=== PATIENT | male | born 1960 | race Caucasian/White ===

== ENCOUNTER 2021-02-08 08:43 | Emergency (ER) | payer BC, MEDICAID ==
[~2021-02-08] VITALS: Ht 167.6 cm; Wt 68.0 kg
[2021-02-08 08:55] VITALS: BP 138/76
--- NOTE | 2021-02-08 09:01 | NUR ---
Note marckroro in EDM - 02/08/21 at 0923 by [facility] 60 Y/O MALE C/O NAUSEA, ABDOMINAL PAIN 06/18 DESCRIBES DULL AND BEGAN VOMITING BLOOD AND SAW A SMALL CLOT [id number]. PT STATES HE TOOK MYLANTA AND EMETROL WITH SOME RELIEF. PT DENIES FEVER/CHILLS. PMH: LOWER GI BLEED, 4-10 BEERS A WEEK [id number]. NKA
--- NOTE | 2021-02-08 09:02 | NUR ---
PT TAKEN TO BED 11
--- NOTE | 2021-02-08 09:03 | NUR ---
60 Y/O MALE C/O NAUSEA, ABDOMINAL PAIN 06/18 DESCRIBES DULL AND BEGAN VOMITING BLOOD AND SAW A SMALL CLOT [id number]. PT STATES HE TOOK MYLANTA AND EMETROL WITH SOME RELIEF. PT DENIES FEVER/CHILLS. PMH: LOWER GI BLEED, 4-10 BEERS A WEEK [id number]. [place]
--- NOTE | 2021-02-08 09:04 | NUR ---
Dr. Nelson at pt bedside for further evaluation.
--- NOTE | 2021-02-08 09:04 | NUR ---
Dr. Nelson examining patient.
--- NOTE | 2021-02-08 09:21 | NUR ---
crime lab technician at pt bedside.
[2021-02-08 09:45] LABS: BASOPHILS % (AUTO) 0.3 % (0.0-2.0); EOSINOPHILS % (AUTO) 0.5 % (0.0-4.0); HEMATOCRIT 44.9 % (36-52); HEMOGLOBIN 15.6 g/dL (12.0-18.0); LYMPHOCYTES # (AUTO) 0.8 K/uL (2.0-11.5); LYMPHOCYTES % (AUTO) 20.7 % (20.5-51.1); MEAN CORPUSCULAR HEMOGLOBIN 33 pg (27-31); MEAN CORPUSCULAR HGB CONC 35 g/dL (33-37); MEAN CORPUSCULAR VOLUME 93.6 fL (80-94); MONOCYTES # (AUTO) 0.4 K/uL (0.8-1.0); MONOCYTES % (AUTO) 9.8 % (1.7-9.3); NEUTROPHILS # (AUTO) 2.7 K/uL (1.8-7.7); NEUTROPHILS % (AUTO) 68.7 % (42.2-75.2); PLATELET COUNT (AUTO) 156 K/uL (140-450); RED BLOOD CELL COUNT(AUTO) 4.79 MIL/uL (4.20-6.10); RED CELL DISTRIBUTION WIDTH 13.8 % (11.6-13.7)
[2021-02-08 09:48] LABS: PROTHROMBIN TIME 11.8 secs (10.8-13.4)
[2021-02-08 09:51] LABS: ANION GAP 13.5 (8-16); CARBON DIOXIDE 25.4 mmol/L (21-32); CREATININE 0.6 mg/dL (0.6-1.3); POTASSIUM 3.9 mmol/L (3.5-5.1); TOTAL BILIRUBIN 0.9 mg/dL (0.0-1.0)
[2021-02-08] MEDS ORDERED: MAG-27 PO (10:45)
[2021-02-08 11:07] VITALS: BP 138/76
--- NOTE | 2021-02-08 11:09 | NUR ---
Patient discharged with v/s stable. Written and verbal after care instructions given and explained. Patient alert, oriented and verbalized understanding of instructions. Ambulatory with steady gait. All questions addressed prior to discharge. ID band removed. Patient advised to follow up with PMD. Rx of MYLANTA 20Ml TID PRN REFLUX given. Patient educated on indication of medication including possible reaction and side effects. Opportunity to ask questions provided and answered.
== END 2021-02-08 11:09 | disposition home or self-care (01) ==
LOC: MED 08:43
DX: R10.10 Upper abdominal pain, unspecified (principal); R11.0 Nausea
CPT/HCPCS: 36415; 80053; 83690; 85025; 85610; 85730; 99283

== ENCOUNTER 2021-04-20 06:43 | Emergency (ER) | payer MEDICAID ==
[~2021-04-20] VITALS: Ht 152.4 cm; Wt 62.1 kg
[~2021-04-20 06:43] MED LIST: MAG-27 PO
[2021-04-20 06:46] VITALS: BP 139/83
--- NOTE | 2021-04-20 06:46 | NUR ---
to bed ambulatory
[2021-04-20] MEDS ORDERED: KETOROLAC 60 MG/2 ML VIAL IM ONE (07:00)
--- NOTE | 2021-04-20 07:15 | NUR ---
RECEIVED AWAKE AND ALERT IN BED 11, REPORTS THAT HE TOOK A FALL AT HOME ON STAIRS, STRUCK THE RIGHT SIDE OF HEAD WITH NO LOC, RIGHT SHOULDER WITH DECREASED ROM NOW, AND STRUCK RIGHT CHEST WALL. CO DIFFICULTY RAISING RIGHT ARM MORE THAT 45 DEGREESS, CO RT RIB PAIN WITH DEEP INSPIRATION. POSITIONED FOR COMFORT, BED LOW AND LOCKED. RESTING QUEITLY AWAITING XRAYS AND MEDICATION. DENIES MEDICAL HISTORY, MEDS (OTHER THAN ALEVE) AND DENIES ALLERGIES.
--- NOTE | 2021-04-20 07:17 | NUR ---
INITIAL EXAM AND ASSESSMENT, MEDICATED FOR PAIN, XRAY AT BEDSIDE.
[2021-04-20] MEDS ORDERED: NAPR-54 PO (08:22)
[2021-04-20] MEDS ORDERED: LID5T TP (08:28)
[2021-04-20 08:34] VITALS: BP 139/83
--- NOTE | 2021-04-20 08:34 | NUR ---
Patient discharged with v/s stable. Written and verbal after care instructions given and explained. Patient alert, oriented and verbalized understanding of instructions. Ambulatory with steady gait. All questions addressed prior to discharge. ID band removed. Patient advised to follow up with PMD. Rx of Lidocaine, Naproxen given. Patient educated on indication of medication including possible reaction and side effects. Opportunity to ask questions provided and answered.
--- NOTE | 2021-04-20 08:34 | NUR ---
pt placed in right shoulder sling
--- NOTE | 2021-04-20 08:36 | NUR ---
PATIENT DISCHARGED FROM FACILITY NO INCENTIVE SPIROMETRY PERFORMED
== END 2021-04-20 08:34 | disposition home or self-care (01) ==
LOC: MED 06:43
DX: S46.811A Strain of other muscles, fascia and tendons at shoulder and upper arm level, right arm, initial encounter (principal); R07.89 Other chest pain; Z79.899 Other long term (current) drug therapy; W10.9XXA Fall (on) (from) unspecified stairs and steps, initial encounter; Y93.89 Activity, other specified; Y92.89 Other specified places as the place of occurrence of the external cause; Y99.8 Other external cause status
CPT/HCPCS: 71045; 73030; 96372; 99284; J1885

== ENCOUNTER 2023-05-29 06:50 | Emergency (ER) | payer MEDICAID, OTHER ==
[~2023-05-29] VITALS: Ht 165.1 cm; Wt 64.0 kg
[~2023-05-29 06:50] MED LIST changes: +LID5T TP; +NAPR-54 PO
[2023-05-29 07:14] VITALS: BP 148/83; PULSE 55; RESP 18; TEMP 96.9; O2SAT 100
[2023-05-29 08:39] LABS: BASOPHILS % (AUTO) 0.5 % (0.0-2.0); EOSINOPHILS % (AUTO) 0.5 % (0.0-4.0); HEMATOCRIT 46.2 % (36-52); HEMOGLOBIN 15.8 g/dL (12.0-18.0); LYMPHOCYTES # (AUTO) 1.1 K/uL (2.0-11.5); LYMPHOCYTES % (AUTO) 19.5 % (20.5-51.1); MEAN CORPUSCULAR HEMOGLOBIN 32 pg (27-31); MEAN CORPUSCULAR HGB CONC 34 g/dL (33-37); MEAN CORPUSCULAR VOLUME 93.7 fL (80-94); MONOCYTES # (AUTO) 0.6 K/uL (0.8-1.0); MONOCYTES % (AUTO) 11.5 % (1.7-9.3); NEUTROPHILS # (AUTO) 3.8 K/uL (1.8-7.7); PLATELET COUNT (AUTO) 152 K/uL (140-450); RED BLOOD CELL COUNT(AUTO) 4.93 MIL/uL (4.20-6.10); WHITE BLOOD COUNT (AUTO) 5.6 K/uL (4.8-10.8)
[2023-05-29 08:47] LABS: ALBUMIN 3.8 g/dL (3.4-5.0); ANION GAP 10.3 (8-16); CALCIUM 8.6 mg/dL (8.5-10.1); CARBON DIOXIDE 29.5 mmol/L (21-32); CREATININE 0.9 mg/dL (0.6-1.3); POTASSIUM 4.8 mmol/L (3.5-5.1); TOTAL BILIRUBIN 0.9 mg/dL (0.0-1.0); TOTAL PROTEIN, SERUM 7.1 g/dL (6.4-8.2)
[2023-05-29] MEDS ORDERED: METR-435 PO (10:13)
[2023-05-29] MEDS ORDERED: CIPR500T4 PO (10:13)
[2023-05-29 10:30] VITALS: BP 124/80; PULSE 74; RESP 17; O2SAT 98
== END 2023-05-29 10:30 | disposition home or self-care (01) ==
LOC: MED 06:50
DX: K52.9 Noninfective gastroenteritis and colitis, unspecified (principal); R11.0 Nausea; Z79.899 Other long term (current) drug therapy
CPT/HCPCS: 36415; 80053; 83690; 85025; 99284

== ENCOUNTER → 2023-06-02 | Emergency (ER) | payer OTHER ==
[~2023-06-02] VITALS: Ht 165.1 cm; Wt 63.5 kg
[~2023-06-02] MED LIST changes: +AMOX-1230 PO; +CIPR500T4 PO; +METR-435 PO
[2023-06-02 14:40] VITALS: BP 132/84; PULSE 87; RESP 18; TEMP 97.5; O2SAT 97
[2023-06-02 15:16] VITALS: BP 132/84; PULSE 87; RESP 18; TEMP 98; O2SAT 98
== END | disposition home or self-care (01) ==
LOC: MED 14:08
DX: R20.0 Anesthesia of skin (principal); T36.8X5A Adverse effect of other systemic antibiotics, initial encounter; T37.3X5A Adverse effect of other antiprotozoal drugs, initial encounter; Z79.899 Other long term (current) drug therapy; Y92.89 Other specified places as the place of occurrence of the external cause
CPT/HCPCS: 99283

== ENCOUNTER 2023-10-30 15:36 | Emergency (ER) | payer OTHER ==
[~2023-10-30] VITALS: Ht 167.6 cm; Wt 68.0 kg
[2023-10-30 15:45] VITALS: BP 132/96; PULSE 70; RESP 18; TEMP 97.8; O2SAT 98
[2023-10-30 15:50] VITALS: O2SAT 98
[2023-10-30 16:31] LABS: BASOPHILS % (AUTO) 0.4 % (0.0-2.0); EOSINOPHILS # (AUTO) 0.1 K/uL (0-0.4); EOSINOPHILS % (AUTO) 1.1 % (0.0-4.0); HEMATOCRIT 48.8 % (36-52); LYMPHOCYTES # (AUTO) 1.5 K/uL (2.0-11.5); LYMPHOCYTES % (AUTO) 28.2 % (20.5-51.1); MEAN CORPUSCULAR HEMOGLOBIN 32 pg (27-31); MEAN CORPUSCULAR HGB CONC 35 g/dL (33-37); MEAN CORPUSCULAR VOLUME 92.4 fL (80-94); MONOCYTES # (AUTO) 0.8 K/uL (0.8-1.0); NEUTROPHILS # (AUTO) 2.9 K/uL (1.8-7.7); NEUTROPHILS % (AUTO) 55.3 % (42.2-75.2); PLATELET COUNT (AUTO) 143 K/uL (140-450); RED BLOOD CELL COUNT(AUTO) 5.29 MIL/uL (4.20-6.10); RED CELL DISTRIBUTION WIDTH 14.1 % (11.6-13.7); WHITE BLOOD COUNT (AUTO) 5.2 K/uL (4.8-10.8)
[2023-10-30] MEDS ORDERED: ALUMINUM HYD/MAG/SIMETHICONE 30 ML UDC PO ONE (16:35)
[2023-10-30] MEDS ORDERED: FAMOTIDINE 20 MG TAB PO ONE (16:35)
[2023-10-30 16:43] LABS: CALCIUM 8.7 mg/dL (8.5-10.1); CARBON DIOXIDE 28.7 mmol/L (21-32); CREATININE 0.8 mg/dL (0.6-1.3); POTASSIUM 4.7 mmol/L (3.5-5.1)
[2023-10-30 16:55] LABS: ALANINE AMINOTRANSFERASE 29 U/L (12-78); ALBUMIN 3.9 g/dL (3.4-5.0); ALKALINE PHOSPHATASE 93 U/L (50-136); ASPARTATE AMINOTRANSFERASE 21 U/L (15-37); BILIRUBIN,DIRECT 0.1 mg/dL (0.0-0.3); LIPASE 25 U/L (16-77); TOTAL BILIRUBIN 0.4 mg/dL (0.0-1.0); TOTAL PROTEIN, SERUM 8.5 g/dL (6.4-8.2)
[2023-10-30 17:42] LABS: APPEARANCE,URINE CLEAR (CLEAR); BILIRUBIN,URINE NEGATIVE (NEGATIVE); BLOOD, URINE NEGATIVE (NEGATIVE); COLOR,URINE YELLOW (YELLOW); LEUKOCYTE ESTERASE ,URINE NEGATIVE (NEGATIVE); NITRITE, URINE NEGATIVE (NEGATIVE); PROTEIN,URINE NEGATIVE (NEGATIVE); UGLUCOSE NEGATIVE (NEGATIVE); UROBILINOGEN,URINE 0.2 EU/dL (0.2 - 1)
[2023-10-30] MEDS ORDERED: SUCR1TAB35 PO (17:47)
[2023-10-30] MEDS ORDERED: PANT40EC PO (17:47)
== END 2023-10-30 17:53 | disposition home or self-care (01) ==
LOC: MED 15:36
DX: R10.13 Epigastric pain (principal); Z79.899 Other long term (current) drug therapy; Z79.1 Long term (current) use of non-steroidal anti-inflammatories (NSAID); Z79.2 Long term (current) use of antibiotics
CPT/HCPCS: 36415; 71045; 80048; 80076; 81003; 83690; 84484; 85025; 93005; 99285